=== PATIENT | male | born 2000 | race Hispanic/Latino ===

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

== ENCOUNTER 2019-06-22 22:52 | Emergency (ER) | payer BC, SELFPAY ==
--- OUTSIDE RECORDS SUMMARY | 2019-06-22 22:54 | XMS REPORT ---
:2000 [facility] Address [address] [place] [address] Dr. Newman [address] [place] [id number] Care Team Providers Name Role Phone Unavailable Unavailable Unavailable Problems This patient has no known problems. Allergies, Adverse Reactions, Alerts This patient has no known allergies or adverse reactions. Medications This patient has no known medications.
--- NOTE | 2019-06-23 01:44 | EDPHYS ---
Physician Documentation [facility] Name: Nathanael Vaughan Age: 18 yrs Sex: Male : 2000 Arrival Date: 06/22/2019 Time: 22:53 Bed 7 Private MD: ED Physician Jose Montalvo HPI: 06/23 01:36 This 18 yrs old Male presents to ER via Ambulatory with complaints of Foot tw4 Pain. 01:36 The patient presents with an injury, pain, that is acute. The complaints affect the tw4 right foot. Context: The problem was sustained at home. Onset: The symptoms/episode began/occurred today. Modifying factors: The symptoms are alleviated by nothing, the symptoms are aggravated by nothing. Severity of symptoms: At their worst the symptoms were moderate, in the emergency department the symptoms are unchanged. The patient has not experienced similar symptoms in the past. Historical: - Allergies: 06/22 23:26 No Known Allergies; ak1 - Home Meds: 23:26 None [Active]; ak1 - PMHx: 23:26 None; ak1 - PSHx: 23:26 None; ak1 - Immunization history:: Adult Immunizations up to date. - Social history:: Smoking status: Patient/guardian denies using tobacco. - Ebola Screening: : No symptoms or risks identified at this time. ROS: 06/23 01:36 Constitutional: Negative for fever, chills, and weight loss, Eyes: Negative for injury, tw4 pain, redness, and discharge, Cardiovascular: Negative for chest pain, palpitations, and edema, Respiratory: Negative for shortness of breath, cough, wheezing, and pleuritic chest pain, Abdomen/GI: Negative for abdominal pain, nausea, vomiting, diarrhea, and constipation, Back: Negative for injury and pain. MS/extremity: Positive for injury or acute deformity, pain, tenderness. Exam: 05:29 Constitutional: This is a well developed, well nourished patient who is awake, alert, tw4 and in no acute distress. Head/Face: Normocephalic, atraumatic. Chest/axilla: Normal chest wall appearance and motion. Nontender with no deformity. No lesions are appreciated. Cardiovascular: Regular rate and rhythm with a normal S1 and S2. No gallops, murmurs, or rubs. Normal PMI, no JVD. No pulse deficits. Respiratory: Lungs have equal breath sounds bilaterally, clear to auscultation and percussion. No rales, rhonchi or wheezes noted. No increased work of breathing, no retractions or nasal flaring. Abdomen/GI: Soft, non-tender, with normal bowel sounds. No distension or tympany. No guarding or rebound. No evidence of tenderness throughout. Neuro: Awake and alert, GCS 15, oriented to person, place, time, and situation. Cranial nerves II-XII grossly intact. Motor strength 5/5 in all extremities. Sensory grossly intact. Cerebellar exam normal. Normal gait. 05:29 Musculoskeletal/extremity: Extremities: all appear grossly normal, with no appreciated pain with palpation. Vital Signs: 06/22 23:24 BP 114 / 68; Pulse 89; Resp 16; Temp 99.2; Pulse Ox 99% on R/A; Weight 58.97 kg (R); ak1 Height 5 ft. 7 in. (170.18 cm) (R); Pain 7/10; 06/23 00:23 BP 116 / 68; Pulse 86; Resp 16; Pulse Ox 100% ; ao 06/22 23:24 Body Mass Index 20.36 (58.97 kg, 170.18 cm) ak1 MDM: 00:37 Patient medically screened. tw4 01:36 Differential diagnosis: fracture, foreign body. Data reviewed: vital signs, nurses tw4 notes. Counseling: I had a detailed discussion with the patient and/or guardian regarding: the historical points, exam findings, and any diagnostic results supporting the discharge/admit diagnosis. Special discussion: I discussed with the patient/guardian in detail that at this point there is no indication for admission to the hospital. It is understood, however, that if the symptoms persist or worsen the patient needs to return immediately for re-evaluation. 05:29 Data interpreted: Pulse oximetry: Interpretation: normal. tw4 06/23 00:11 Order name: Os Calcis (Calcaneus) Heel EDMS Administered Medications: 01:42 Drug: Motrin 800 mg Route: PO; ao 02:00 Follow up: Response: No adverse reaction ao Disposition: 06/23/19 01:43 Discharged to Home. Impression: Contusion of right foot. - Condition is Stable. - Discharge Instructions: Foot Contusion, Foot Contusion, [id number]. - Prescriptions for Ibuprofen 800 mg Oral Tablet - take 1 tablet by ORAL route every 8 hours As needed take with food; 30 tablet. - Medication Reconciliation Form, Thank You Letter, Antibiotic Education, Prescription Opioid Use form. - Follow up: Private Physician; When: Upon discharge from the Emergency Department; Reason: If symptoms return, Recheck today's complaints, Continuance of care. - Problem is new. - Symptoms have improved. Signatures: Dispatcher [employer] [facility] Alyssa Murdock RN RN ak1 Jin Asif RN RN ao Wadley, Terrence, MD MD tw4 Corrections: (The following items were deleted from the chart) 00:11 06/22 23:31 Foot Right 2 View+RAD.RAD.[email or web address] ordered. [facility] 06/23 02:00 01:43 06/23/2019 01:43 Discharged to Home. Impression: Contusion of right foot. ao Condition is Stable. Forms are Medication Reconciliation Form, Thank You Letter, Antibiotic Education, Prescription Opioid Use. Follow up: Private Physician; When: Upon discharge from the Emergency Department; Reason: If symptoms return, Recheck today's complaints, Continuance of care. Problem is new. Symptoms have improved. tw4 05:30 01:36 Constitutional: This is a well developed, well nourished patient who is awake, tw4 alert, and in no acute distress. Head/Face: Normocephalic, atraumatic. Cardiovascular: Regular rate and rhythm with a normal S1 and S2. No gallops, murmurs, or rubs. Normal PMI, no JVD. No pulse deficits. Respiratory: Lungs have equal breath sounds bilaterally, clear to auscultation and percussion. No rales, rhonchi or wheezes noted. No increased work of breathing, no retractions or nasal flaring. Abdomen/GI: Soft, non-tender, with normal bowel sounds. No distension or tympany. No guarding or rebound. No evidence of tenderness throughout. Back: No spinal tenderness. No costovertebral tenderness. Full range of motion. MS/ Extremity: Pulses equal, no cyanosis. Neurovascular intact. Full, normal range of motion. Neuro: Awake and alert, GCS 15, oriented to person, place, time, and situation. Cranial nerves II-XII grossly intact. Motor strength 5/5 in all extremities. Sensory grossly intact. Cerebellar exam normal. Normal gait. tw4
--- NOTE | 2019-06-23 01:44 | ER ---
Nurse's Notes [facility] Name: Nathanael Vaughan Age: 18 yrs Sex: Male : 2000 Arrival Date: 06/22/2019 Time: 22:53 Bed 7 Private MD: Diagnosis: Contusion of right foot Presentation: 06/22 23:25 Presenting complaint: Patient states: right heel pain since 1800 after kicking an ak1 object with his heel. Transition of care: patient was not received from another setting of care. Onset of symptoms was June 22, 2019. Risk Assessment: Do you want to hurt yourself or someone else? Patient reports no desire to harm self or others. Initial Sepsis Screen: Does the patient meet any 2 criteria? No. Patient's initial sepsis screen is negative. Does the patient have a suspected source of infection? No. Patient's initial sepsis screen is negative. Care prior to arrival: None. 23:25 Method Of Arrival: Ambulatory ak1 23:25 Acuity: NATA 4 ak1 Triage Assessment: 23:26 General: Appears in no apparent distress. Behavior is calm, cooperative. Pain: ak1 Complains of pain in lateral side of right heel and medial aspect of right heel. EENT: No signs and/or symptoms were reported regarding the EENT system. Neuro: No deficits noted. Cardiovascular: No deficits noted. Respiratory: No deficits noted. GI: No signs and/or symptoms were reported involving the gastrointestinal system. : No signs and/or symptoms were reported regarding the genitourinary system. Derm: No signs and/or symptoms reported regarding the dermatologic system. Musculoskeletal: No signs and/or symptoms reported regarding the musculoskeletal system. Historical: - Allergies: 23:26 No Known Allergies; ak1 - Home Meds: 23:26 None [Active]; ak1 - PMHx: 23:26 None; ak1 - PSHx: 23:26 None; ak1 - Immunization history:: Adult Immunizations up to date. - Social history:: Smoking status: Patient/guardian denies using tobacco. - Ebola Screening: : No symptoms or risks identified at this time. Screenin:42 Abuse screen: Denies threats or abuse. Denies injuries from another. Nutritional ao screening: No deficits noted. Tuberculosis screening: No symptoms or risk factors identified. Fall Risk None identified. Assessment: 23:37 General: Appears in no apparent distress. comfortable, Behavior is calm, cooperative, ao appropriate for age. Pain: Complains of pain in right foot Pain does not radiate. Pain currently is 7 out of 10 on a pain scale. Neuro: Level of Consciousness is awake, alert, obeys commands, Oriented to person, place, time, situation, Appropriate for age Moves all extremities. Full function Speech is normal, Facial symmetry appears normal, Pupils are PERRLA. Cardiovascular: Heart tones S1 S2 Capillary refill < 3 seconds Patient's skin is warm and dry. Respiratory: Airway is patent Respiratory effort is even, unlabored, Respiratory pattern is regular, symmetrical, Breath sounds are clear bilaterally. GI: Abdomen is flat, non-distended. : No signs and/or symptoms were reported regarding the genitourinary system. EENT: No signs and/or symptoms were reported regarding the EENT system. Derm: Skin is intact, Skin is pink, warm \T\ dry. normal, Skin temperature is warm. Musculoskeletal: Circulation, motion, and sensation intact. Range of motion: intact in all extremities, Reports pain in right foot Denies Trauma to left ankle. 06/23 00:22 Reassessment: Patient appears in no apparent distress at this time. Patient and/or ao family updated on plan of care and expected duration. Pain level reassessed. Patient is alert, oriented x 3, equal unlabored respirations, skin warm/dry/pink. 01:59 Reassessment: Patient appears in no apparent distress at this time. DC instructions ao given to patient. Patient agree with the POC and to follow up with PCP. No questions at this time. Vital Signs: 06/22 23:24 BP 114 / 68; Pulse 89; Resp 16; Temp 99.2; Pulse Ox 99% on R/A; Weight 58.97 kg (R); ak1 Height 5 ft. 7 in. (170.18 cm) (R); Pain 7/10; 06/23 00:23 BP 116 / 68; Pulse 86; Resp 16; Pulse Ox 100% ; ao 06/22 23:24 Body Mass Index 20.36 (58.97 kg, 170.18 cm) ak1 ED Course: 06/22 22:53 Patient arrived in ED. ds1 23:24 Arm band placed on Patient placed in waiting room, Patient notified of wait time. ak1 23:25 Triage completed. ak1 23:37 Jin Asif, RN is Primary Nurse. ao 23:42 Patient has correct armband on for positive identification. Pulse ox on. NIBP on. ao 06/23 00:29 X-ray completed. Patient tolerated procedure well. kw 00:36 Os Calcis (Calcaneus) Heel In Process Unspecified. EDMS 00:37 Jose Montalvo MD is Attending Physician. tw4 02:00 No provider procedures requiring assistance completed. Patient did not have IV access ao during this emergency room visit. Administered Medications: 01:42 Drug: Motrin 800 mg Route: PO; ao 02:00 Follow up: Response: No adverse reaction ao Outcome: :43 Discharge ordered by . tw4 02:00 Discharged to home ambulatory. ao 02:00 Condition: stable 02:00 Discharge instructions given to patient, Instructed on discharge instructions, follow up and referral plans. Demonstrated understanding of instructions, follow-up care, medications, Prescriptions given X 1. 02:00 Patient left the ED. ao Signatures: Dispatcher [employer] EDUT KimballIla frank ds1 Charlotte Castellon Amber RN RN ak1 Jin Asif, RN RN ao Jose Montalvo MD MD tw4
[2019-06-23] MEDS ORDERED: IBUPROFEN 400 MG TAB ONE (01:57)
--- NOTE | 2019-06-23 08:42 | RAD REPORT ---
EXAM DESCRIPTION: RAD - Os Calcis (Calcaneus) Heel - 06/23/2019 12:36 am CLINICAL HISTORY: Calcaneus pain following trauma COMPARISON: None. FINDINGS: No fracture or acute finding of the calcaneus. No plantar or Achilles spurring. There is a small benign sclerotic focus posterosuperior calcaneus. No bony coalition or subtalar abnormality se en. No suspicious findings in the soft tissues. IMPRESSION: Negative right calcaneus.
== END 2019-06-23 02:00 | disposition home or self-care (01) ==
LOC: ER 22:52
DX: S90.31XA Contusion of right foot, initial encounter (principal); Y92.009 Unspecified place in unspecified non-institutional (private) residence as the place of occurrence of the external cause
CPT/HCPCS: 73650; 99284

== ENCOUNTER 2022-02-27 18:38 | Emergency (ER) | payer BC, SELFPAY ==
--- OUTSIDE RECORDS SUMMARY | 2022-02-27 18:41 | XMS REPORT | Continuity of Care Document ---
:2000 Author Organization [facility] t Address [address] [place] [address] Care Team Providers Name Role Phone Pcp, Does Not Have A Primary Care Physician carlos albertoarp Attending Clinician Unavailable Berny Salgado Attending Clinician [phone] Darío Attending Clinician Unavailable Lab, Fam Pob I Attending Clinician Unavailable Berny Salgado Unavailable [phone] Benjamín Unavailable Unavailable Payers Payer Name Policy Type Policy Number Effective Date Expiration Date S ource Self Pay P [id number] 2021 00:00:00 Problems Condition Condition Condition Status Onset Resolution Last Treating Co mments Source Name Details Category Date Date Treatment Clinician Date Anxiety Condition Active 2021-03-20 Lily Salgado with 03-20 09:24:31 Mag Saldivar i depression 00:00: ty 00 Health High risk Condition Active 2021-03-20 Andrea Salgado sexual 03-20 09:24:31 Mag Arrieta Commun i behavior 00:00: ty 00 Health Folliculit Condition Active 2021-03-20 Andrea Salgado is 03-20 09:24:31 Mag Arrieta Commun i 00:00: ty 00 Health Std Condition Active 2021-03-20 Alton Salgado acy screening 03-20 09:24:31 Mag Arrieta Com sandor 00:00: ty 00 Health Preventati Condition Active 2021-03-20 Andrea Butts health 07-22 09:02:39 Larry Comm uni care 00:00: ty 00 Health Allergies, Adverse Reactions, Alerts This patient has no known allergies or adverse reactions. Social History Social Habit Start Date Stop Date Quantity Comments Source Exposure to Yes [facility] of SARS-CoV-2 (event) [facility] albumin, serum 2021-03-20 2021-03-20 5.0 g/dL [facility] 09:48:00 09:48:00 Health number of sexual 2021-03-20 2021-03-20 [facility] partners in last year 08:17:37 08:17:37 [facility] social history 2021-03-20 2021-03-20 reviewed today [facility] reviewed E&M 08:17:37 08:17:37 Health PHQ2 Questionairre 2021-03-20 2021-03-20 [facility] Score 08:17:37 08:17:37 Health drug use 2021-03-20 2021-03-20 Never [facility] ty 08:17:37 08:17:37 Health alcohol use 2021-03-20 2021-03-20 Never [facility] ity 08:17:37 08:17:37 Health condom use 2021-03-20 2021-03-20 Never [facility] ty 08:17:37 08:17:37 Health Ever had sexual 2021-03-20 2021-03-20 Yes [facility] intercourse? 08:17:37 08:17:37 Health is there any chance 2021-03-20 2021-03-20 No [facility] that you could be 08:17:37 08:17:37 Health ? passive cigarette 2021-03-20 2021-03-20 No [facility] smoke exposure 08:17:37 08:17:37 Health if the patient is 2021-03-20 2021-03-20 No [facility] using/has used a 08:17:37 08:17:37 Health vaping item, Current, Former, Never Used, Not asked sexual orientation 2021-03-20 2021-03-20 Srivastava [facility] 08:17:37 08:17:37 Health Number of Partners in 2019-07-22 2019-07-22 [facility] Last 60 Days 14:26:06 14:26:06 Health Gender of previous 2019-07-22 2019-07-22 Men [facility] sexual partner(s) 14:26:06 14:26:06 Health Gender of current 2019-07-22 2019-07-22 Men [facility] sexual partner(s) 14:26:06 14:26:06 Health intravenous drug use 2019-07-22 2019-07-22 No [facility] (IVDU) with needle 14:26:06 14:26:06 Health sharing, hx of Site - PrEP on Sexual 2019-07-22 2019-07-22 1198 - [facility] Risk Prophylaxis 14:26:06 14:26:06 Health [place] Number - 2019-07-22 2019-07-22 [facility] PrEP on Sexual Risk 14:26:06 14:26:06 Healt h Prophylaxis Funding Source - PrEP 2019-07-22 2019-07-22 [facility] on Sexual Risk 14:26:06 14:26:06 Health Prophylaxis high risk sexual 2019-07-22 2019-07-22 Yes [facility] behaviors 14:26:06 14:26:06 Health sex at 2019-07-22 2019-07-22 Male [facility] nity 14:26:06 14:26:06 Health Gender that patient 2019-07-22 2019-07-22 Men [facility] is attracted to 14:26:06 14:26:06 Health Sex Assigned At [birth year] Uni versity of 00:00:00 00:00:00 [facility] Smoking Status Start Date Stop Date Source Unknown if ever smoked [facility]finding[facility]ations Ordered Filled Start Stop Current Ordering Indication Dosage Frequency Signature Comments Components Source Medication Medication Date Date Medication? Clinician (SIG) Name Name GARRY Yes Mag Arrieta 1 1xD 1 tablet Le gacy (EMTRICITAB 4-20 Salgado daily Communi INE-TENOFOV 00:00: ty IR AF) 00 Health 200-25 MG TABS (MUPIROCIN) Yes Mag Arrieta apply 1 [facility] 2 % OINT 4-20 Salgado gram to Communi 00:00: affected ty 00 area twice Health a day. LEXAPRO Yes Mag Arrieta 1 1xD 1 tablet Lily lilly (ESCITALOPR 4-20 Salgado daily Communi AM OXALATE) 00:00: ty 10 MG TABS 00 Health No known 2017- No Univers medications 2-21 ity of 00:06: [place] [id number] [facility] Immunizations Ordered Filled Immunization Date Status Comments [facility] e Immunization Name Name SARS-COV-2 COVID-19 2021-02-17 Completed Unive rsity of PFIZER VACCINE 00:00:00 [facility] SARS-COV-2 COVID-19 2021-01-27 Completed Unive rsity of PFIZER VACCINE 00:00:00 [facility] Vital Signs Vital Name Observation Time Observation Value Comments Source weight in kilograms 2021-03-20 08:17:37 57.45 kg L [facility] E& Health respiratory rate E&M 2021-03-20 08:17:37 20 /min [facility] temperature site 2021-03-20 08:17:37 oral [facility] temperature E&M 2021-03-20 08:17:37 97.7 [degF] [facility] blood pressure, 2021-03-20 08:17:37 80 mm[Hg] [facility] diastolic [facility] blood pressure, 2021-03-20 08:17:37 123 mm[Hg] [facility] systolic [facility] oxygen saturation, 2021-03-20 08:17:37 97 /min [facility] oximetry [facility] pulse rate 2021-03-20 08:17:37 59 /min [facility] height in 2021-03-20 08:17:37 172.72 cm [facility] centimeters E&M [facility] weight E&M 2021-03-20 08:17:37 126.38 [lb_av] [facility] Procedures Procedure Date / Time Performing Clinician Source Performed Health 2021-03-31 13:42:04 Martinez Vera [facility] Education/Supportive Health Counseling Health 2021-03-20 09:48:34 Provider, [facility] Education/Supportive Health Services Health Counseling EKG - 12 Leads with 2021-03-20 09:04:03 Mag Salgado [facility] Interpretation and Report Health Venipuncture 2021-03-20 09:03:28 Mag Salgado [facility] 2019-07-22 14:29:45 Provider, Philly munoz Education/Supportive Health Services Health Counseling Encounters Start End Encounter Admission Attending Care Care Encounter Source Date/Time Date/Time Type Type Clinicians Facility Department ID 2022-02-17 Outpatient lc.[facility] [id number] [facility] 05:03:53 [facility] 2021-09-16 Outpatient lc.[facility] [id number] [facility] 12:35:29 [id number] [facility] 2021-09-16 Outpatient lc.[facility] [id number] [facility] 11:48:50 [id number] [facility] 2021-09-16 Outpatient lc.[facility] [id number] [facility] 11:20:40 [id number] [facility] 2021-09-16 Outpatient lc.[facility] [id number] [facility] 10:59:36 [id number] [facility] 2021-03-20 2021-03-20 Office Mag Salgado [facility] [id number] [facility] 00:00:00 00:00:00 Visit Margarita Chanel [id number] [facility] 2020-06-11 2020-06-11 Laboratory Lab, [facility] [id number] [facility] 14:00:00 14:20:00 Only Fam Pob I HEALTH [id number] ity of [place] [id number] Randall as PROFESSIO [phone] Tn dical NAL [address] OFFICE BUILDING ONE Results Test Description Test Time Test Comments Results Result Comments Source HIV rapid test results 2021-03-20 09:48:24 Test Item Value Reference Range Interpretation Comme nts HIV rapid test results (test code = 80256) negative Community HealthHIV-CMIA (Chemiluminescent Microparticle Immuno Assay) 2021-03-20 09:48:00 Test Item Value Reference Range Interpretation Comments HIV-CMIA (Chemiluminescent Non Reactive Non Reactive Microparticle Immuno Assay) (test code = 507779) [facility] Healthrapid plasma reagin antibody, [id number] 09:48:00 Test Item Value Reference Range Interpretation Comments rapid plasma reagin antibody, Non Reactive Non Reactive serum (test code = 5291-0) [facility] Healththyroid stimulating hormone, [id number] 09:48:00 Test Item Value Reference Range Interpretation Comments thyroid stimulating hormone, 1.800 u[IU]/mL 0.450-4.500 serum (test code = 3016-3) [facility] HealthNeisseria gonorrhoeae DNA [id number] 09:48:00 Test Item Value Reference Range Interpretation Comments Neisseria gonorrhoeae DNA probe Negative Negative (test code = 60223-3) [facility] Healthchlamydia DNA [id number] 09:48:00 Test Item Value Reference Range Interpretation Comments chlamydia DNA probe (test code = Negative Negative 65522-4) Community HealthLDL cholesterol, [id number] 09:48:00 Test Item Value Reference Range Interpretation Comments LDL cholesterol, serum (test code = 99 mg/dL 0-99 2088-1) Community Healthvery low density dllipfvazaby9889-90-13 09:48:00 Test Item Value Reference Range Interpretation Comments very low density lipoproteins (test 13 mg/dL 5-40 code = 2091-7) Community HealthHDL cholesterol, [id number] 09:48:00 Test Item Value Reference Range Interpretation Comments HDL cholesterol, serum (test code = 86 mg/dL >39 5-9) [facility] Healthtriglyceride, serum, [id number] 09:48:00 Test Item Value Reference Range Interpretation Comments triglyceride, serum, fasting (test 70 mg/dL 0-149 code = 2571-8) [facility] Healthcholesterol, [id number] 09:48:00 Test Item Value Reference Range Interpretation Comments cholesterol, serum (test code = 198 mg/dL 040-867 7370-3) Community Healthalanine aminotransferase (SGPT), [id number] 09:48:00 Test Item Value Reference Range Interpretation Comments alanine aminotransferase (SGPT), serum 16 1/L 0-44 (test code = 1742-6) Community Healthaspartate aminotransferase (SGOT), [id number] 09:48:00 Test Item Value Reference Range Interpretation Comments aspartate aminotransferase (SGOT), 15 1/L 0-40 serum (test code = 1920-8) [facility] Healthalkaline phosphatase, [id number] 09:48:00 Test Item Value Reference Range Interpretation Comments alkaline phosphatase, serum (test code 62 1/L 39-117 = 1783-0) [facility] Healthbilirubin, serum, [id number] 09:48:00 Test Item Value Reference Range Interpretation Comments bilirubin, serum, total (test code 0.5 mg/dL 0.0-1.2 = 1975-2) [facility] Healthalbumin/globulin ratio, [id number] 09:48:00 Test Item Value Reference Range Interpretation Comments albumin/globulin ratio, 2.3 (unknown unit) 1.2-2.2 H serum (test code = 1759-0) [facility] Healthglobulin, [id number] 09:48:00 Test Item Value Reference Range Interpretation Comments globulin, serum (test code 2.2 (unknown unit) 1.5-4.5 = 2336-6) [facility] Healthalbumin, [id number] 09:48:00 Test Item Value Reference Range Interpretation Comments albumin, serum (test code = 1751-7) 5.0 g/dL 4.1-5.2 [facility] Healthprotein, total, [id number] 09:48:00 Test Item Value Reference Range Interpretation Comments protein, total, serum (test code = 7.2 g/dL 6.0-8.5 2885-2) [facility] Healthcalcium, [id number] 09:48:00 Test Item Value Reference Range Interpretation Comments calcium, serum (test code = 2000-07) 9.9 mg/dL 8.7-10.2 Community Healthcarbon dioxide, venous [id number] 09:48:00 Test Item Value Reference Range Interpretation Comments carbon dioxide, venous blood (test 24 mmol/L code = 2026-1) [facility] Healthchloride, [id number] 09:48:00 Test Item Value Reference Range Interpretation Comments chloride, serum (test code = 102 mmol/L 96-106 2075-0) [facility] Healthpotassium, [id number] 09:48:00 Test Item Value Reference Range Interpretation Comments potassium, serum (test code = 4.0 mmol/L 3.5-5.2 2823-3) [facility] Healthsodium, [id number] 09:48:00 Test Item Value Reference Range Interpretation Comments sodium, serum (test code = 2951-2) 140 mmol/L 134-144 Community Healthurea nitrogen/creatinine ratio, [id number] 09:48:00 Test Item Value Reference Range Interpretation Comments urea nitrogen/creatinine 17 (unknown unit) 9-20 ratio, serum (test code = 3097-3) [facility] HealtheGFR if [id number] 09:48:00 Test Item Value Reference Range Interpretation Comments eGFR if 147 mL/min/{1.73 m2} >59 (test code = 41686-8) Community HealthEstimated Glomerular Filtration Rate (calc)2021-03-20 09:48:00 Test Item Value Reference Range Interpretation Comments Estimated Glomerular 127 mL/min/{1.73 m2} >59 Filtration Rate (calc) (test code = 41418-2) Community Healthcreatinine, [id number] 09:48:00 Test Item Value Reference Range Interpretation Comments creatinine, serum (test code = 0.81 mg/dL 0.76-1.27 2160-0) Community Healthurea nitrogen, [id number] 09:48:00 Test Item Value Reference Range Interpretation Comments urea nitrogen, blood (test code = 14 mg/dL 6-20 3094-0) Community Healthblood glucose, [id number] 09:48:00 Test Item Value Reference Range Interpretation Comments blood glucose, random (test code = 94 mg/dL 65-99 2339-0) Community Healthimmature granulocytes, percentage of total cells, blood 2021-03-20 09:48:00 Test Item Value Reference Range Interpretation Comments immature granulocytes, percentage of 0 % total cells, blood (test code = 74942-1) [facility] Healthbasophil count, anegcqkm7547-15-19 09:48:00 Test Item Value Reference Range Interpretation Comments basophil count, absolute (test 0.0 x10E3/uL 0.0-0.2 code = 05002-5) Community HealthEosinophil Absolute [id number] 09:48:00 Test Item Value Reference Range Interpretation Comments Eosinophil Absolute Count (test 0.1 X10E3/UL 0.0-0.4 code = 85640-6) [facility] Healthmonocyte count, blood, [id number] 09:48:00 Test Item Value Reference Range Interpretation Comments monocyte count, blood, automated 0.5 X10E3/UL 0.1-0.9 (test code = 742-7) [facility] Healthlymphocyte count, blood, [id number] 09:48:00 Test Item Value Reference Range Interpretation Comments lymphocyte count, blood, 2.7 X10E3/UL 0.7-3.1 automated (test code = 731-0) [facility] HealthAbsolute [id number] 09:48:00 Test Item Value Reference Range Interpretation Comments Absolute Neutrophils (test code 2.0 X10E3/UL 1.4-7.0 = 39339-2) [facility] Healthbasophils as percent of blood ejgskpeayc0947-57-58 09:48:00 Test Item Value Reference Range Interpretation Comments basophils as percent of blood 0 % leukocytes (test code = 707-0) [facility] Healtheosinophils as percent of blood jhmexmvfpc4805-84-48 09:48:00 Test Item Value Reference Range Interpretation Comments eosinophils as percent of blood 2 % leukocytes (test code = 713-8) [facility] Healthmonocytes as percent of blood sarzmzlrmu9713-37-52 09:48:00 Test Item Value Reference Range Interpretation Comments monocytes as percent of blood 9 % leukocytes (test code = 5905-5) [facility] Healthlymphocytes as percent of blood pmhcaimkkx8960-02-37 09:48:00 Test Item Value Reference Range Interpretation Comments lymphocytes as percent of blood 51 % leukocytes (test code = 736-9) [facility] Healthneutrophils as percent of blood muauubuyhi9560-98-43 09:48:00 Test Item Value Reference Range Interpretation Comments neutrophils as percent of blood 38 % leukocytes (test code = 770-8) [facility] Healthplatelet [id number] 09:48:00 Test Item Value Reference Range Interpretation Comments platelet count (test code = 185 X10E3/UL 150-450 777-3) Community Healthred blood cell distribution [id number] 09:48:00 Test Item Value Reference Range Interpretation Comments red blood cell distribution width 12.0 % 11.6-15.4 (test code = 788-0) [facility] [place] corpuscular hemoglobin concentration, [id number] 09:48:00 Test Item Value Reference Range Interpretation Comments mean corpuscular hemoglobin 33.1 G/DL 31.5-35.7 concentration, RBC (test code = 786-4) [facility] [place] corpuscular hemoglobin, [id number] 09:48:00 Test Item Value Reference Range Interpretation Comments mean corpuscular hemoglobin, RBC 29.8 pg 26.6-33.0 (test code = 785-6) [facility] [place] corpuscular volume, [id number] 09:48:00 Test Item Value Reference Range Interpretation Comments mean corpuscular volume, RBC (test code 90 fL 79-97 = 787-2) [facility] Healthhematocrit, [id number] 09:48:00 Test Item Value Reference Range Interpretation Comments hematocrit, blood (test code = 4544-3) 45.3 % 37.5-51.0 [facility] Healthhemoglobin, [id number] 09:48:00 Test Item Value Reference Range Interpretation Comments hemoglobin, blood (test code = 15.0 g/dL 13.0-17.7 718-7) [facility] Healtherythrocyte (RBC) [id number] 09:48:00 Test Item Value Reference Range Interpretation Comments erythrocyte (RBC) count (test 5.03 X10E6/UL 4.14-5.80 code = 789-8) [facility] Healthleukocyte count, [id number] 09:48:00 Test Item Value Reference Range Interpretation Comments leukocyte count, blood (test 5.3 X10E3/UL 3.4-10.8 code = 6690-2) [facility] Healthhepatitis C antibody, [id number] 09:48:00 Test Item Value Reference Range Interpretation Comments hepatitis C antibody, serum (test code <0.1 0.0-0.9 = 5199-5) Community Healthhepatitis B surface [id number] 09:48:00 Test Item Value Reference Range Interpretation Comments hepatitis B surface antibody (test Reactive code = 78) [facility], [id number] 09:48:00 Test Item Value Reference Range Interpretation Comments hepatitis B core antibody, total Negative Negative (test code = 77) [facility] surface [id number] 09:48:00 Test Item Value Reference Range Interpretation Comments hepatitis B surface antigen (test Negative Negative code = 79) [facility] rapid test [id number] 08:17:37 Test Item Value Reference Range Interpretation Comments HIV rapid test results (test code = negative 22806) [facility] test, date of [id number] 08:17:37 Test Item Value Reference Range Interpretation Comments HIV test, date of last (test code 12/01/2019 = 07730) Community HealthNeisseria gonorrhoeae DNA [id number] 15:01:00 Test Item Value Reference Range Interpretation Comments Neisseria gonorrhoeae DNA probe Negative Negative (test code = 66937-9) Community Healthchlamydia DNA [id number] 15:01:00 Test Item Value Reference Range Interpretation Comments chlamydia DNA probe (test code = Negative Negative 59391-8) Community Healthurea nitrogen, [id number] 14:56:00 Test Item Value Reference Range Interpretation Comments urea nitrogen, blood (test code = 16 mg/dL 6-20 3094-0) Community Healthblood glucose, [id number] 14:56:00 Test Item Value Reference Range Interpretation Comments blood glucose, random (test code = 83 mg/dL 65-99 2339-0) Community Healthimmature granulocytes, percentage of total cells, blood 2019-07-22 14:56:00 Test Item Value Reference Range Interpretation Comments immature granulocytes, percentage of 0 % total cells, blood (test code = 21607-1) [facility] Healthbasophil count, [id number] 14:56:00 Test Item Value Reference Range Interpretation Comments basophil count, absolute (test 0.0 x10E3/uL 0.0-0.2 code = 85114-6) [facility] HealthEosinophil Absolute [id number] 14:56:00 Test Item Value Reference Range Interpretation Comments Eosinophil Absolute Count (test 0.0 X10E3/UL 0.0-0.4 code = 33430-3) [facility] Healthmonocyte count, blood, [id number] 14:56:00 Test Item Value Reference Range Interpretation Comments monocyte count, blood, automated 0.4 X10E3/UL 0.1-0.9 (test code = 742-7) [facility] Healthlymphocyte count, blood, nkkslytmv2119-37-11 14:56:00 Test Item Value Reference Range Interpretation Comments lymphocyte count, blood, 1.7 X10E3/UL 0.7-3.1 automated (test code = 731-0) [facility] HealthAbsolute [id number] 14:56:00 Test Item Value Reference Range Interpretation Comments Absolute Neutrophils (test code 2.5 X10E3/UL 1.4-7.0 = 91131-3) [facility] Healthbasophils as percent of blood [id number] 14:56:00 Test Item Value Reference Range Interpretation Comments basophils as percent of blood 0 % leukocytes (test code = 707-0) [facility] Healtheosinophils as percent of blood pwzlyimaab7704-38-57 14:56:00 Test Item Value Reference Range Interpretation Comments eosinophils as percent of blood 0 % leukocytes (test code = 713-8) [facility] Healthmonocytes as percent of blood tdzjjakpvi8100-28-27 14:56:00 Test Item Value Reference Range Interpretation Comments monocytes as percent of blood 8 % leukocytes (test code = 5905-5) [facility] Healthlymphocytes as percent of blood jiqpbytgsz5095-14-99 14:56:00 Test Item Value Reference Range Interpretation Comments lymphocytes as percent of blood 37 % leukocytes (test code = 736-9) [facility] Healthneutrophils as percent of blood [id number] 14:56:00 Test Item Value Reference Range Interpretation Comments neutrophils as percent of blood 55 % leukocytes (test code = 770-8) [facility] Healthplatelet [id number] 14:56:00 Test Item Value Reference Range Interpretation Comments platelet count (test code = 183 X10E3/UL 150-450 777-3) Community Healthred blood cell distribution [id number] 14:56:00 Test Item Value Reference Range Interpretation Comments red blood cell distribution width 13.1 % 12.3-15.4 (test code = 788-0) [facility] [place] corpuscular hemoglobin concentration, [id number] 14:56:00 Test Item Value Reference Range Interpretation Comments mean corpuscular hemoglobin 34.5 G/DL 31.5-35.7 concentration, RBC (test code = 786-4) [facility] [place] corpuscular hemoglobin, [id number] 14:56:00 Test Item Value Reference Range Interpretation Comments mean corpuscular hemoglobin, RBC 30.3 pg 26.6-33.0 (test code = 785-6) [facility] [place] corpuscular volume, [id number] 14:56:00 Test Item Value Reference Range Interpretation Comments mean corpuscular volume, RBC (test code 88 fL 79-97 = 787-2) [facility] Healthhematocrit, [id number] 14:56:00 Test Item Value Reference Range Interpretation Comments hematocrit, blood (test code = 4544-3) 43.2 % 37.5-51.0 [facility] Healthhemoglobin, [id number] 14:56:00 Test Item Value Reference Range Interpretation Comments hemoglobin, blood (test code = 14.9 g/dL 13.0-17.7 718-7) Community Healtherythrocyte (RBC) [id number] 14:56:00 Test Item Value Reference Range Interpretation Comments erythrocyte (RBC) count (test 4.91 X10E6/UL 4.14-5.80 code = 789-8) [facility] Healthleukocyte count, [id number] 14:56:00 Test Item Value Reference Range Interpretation Comments leukocyte count, blood (test 4.6 X10E3/UL 3.4-10.8 code = 6690-2) Community Healthhepatitis C antibody, [id number] 14:56:00 Test Item Value Reference Range Interpretation Comments hepatitis C antibody, serum (test code <0.1 0.0-0.9 = 5199-5) Community Healthhepatitis B surface [id number] 14:56:00 Test Item Value Reference Range Interpretation Comments hepatitis B surface antibody (test Reactive code = 78) [facility]hepatitis B core antibody, [id number] 14:56:00 Test Item Value Reference Range Interpretation Comments hepatitis B core antibody, total Positive Negative A (test code = 77) [facility] surface [id number] 14:56:00 Test Item Value Reference Range Interpretation Comments hepatitis B surface antigen (test Negative Negative code = 79) [facility]hepatitis A antibody, [id number] 14:56:00 Test Item Value Reference Range Interpretation Comments hepatitis A antibody, total (test Positive Negative A code = 75) [facility] HealthHIV-CMIA (Chemiluminescent Microparticle Immuno Assay) 2019-07-22 14:56:00 Test Item Value Reference Range Interpretation Comments HIV-CMIA (Chemiluminescent Non Reactive Non Reactive Microparticle Immuno Assay) (test code = 470292) [facility]rapid plasma reagin antibody, [id number] 14:56:00 Test Item Value Reference Range Interpretation Comments rapid plasma reagin antibody, Non Reactive Non Reactive serum (test code = 5291-0) [facility] Healthalanine aminotransferase (SGPT), [id number] 14:56:00 Test Item Value Reference Range Interpretation Comments alanine aminotransferase (SGPT), serum 17 1/L 0-44 (test code = 1742-6) [facility] Healthaspartate aminotransferase (SGOT), [id number] 14:56:00 Test Item Value Reference Range Interpretation Comments aspartate aminotransferase (SGOT), 17 1/L 0-40 serum (test code = 1920-8) [facility] Healthalkaline phosphatase, [id number] 14:56:00 Test Item Value Reference Range Interpretation Comments alkaline phosphatase, serum (test code 87 1/L 39-117 = 1783-0) [facility]bilirubin, serum, [id number] 14:56:00 Test Item Value Reference Range Interpretation Comments bilirubin, serum, total (test code 0.3 mg/dL 0.0-1.2 = 1975-2) [facility]albumin/globulin ratio, [id number] 14:56:00 Test Item Value Reference Range Interpretation Comments albumin/globulin ratio, 2.3 (unknown unit) 1.2-2.2 H serum (test code = 1759-0) [facility] Healthglobulin, [id number] 14:56:00 Test Item Value Reference Range Interpretation Comments globulin, serum (test code 2.3 (unknown unit) 1.5-4.5 = 2336-6) [facility] Healthalbumin, [id number] 14:56:00 Test Item Value Reference Range Interpretation Comments albumin, serum (test code = 1751-7) 5.3 g/dL 3.5-5.5 [facility] Healthprotein, total, [id number] 14:56:00 Test Item Value Reference Range Interpretation Comments protein, total, serum (test code = 7.6 g/dL 6.0-8.5 2885-2) [facility]calcium, [id number] 14:56:00 Test Item Value Reference Range Interpretation Comments calcium, serum (test code = 10.1 mg/dL 8.7-10.2 1999-) [facility] Healthcarbon dioxide, venous [id number] 14:56:00 Test Item Value Reference Range Interpretation Comments carbon dioxide, venous blood (test 22 mmol/L - code = 2026-1) [facility] Healthchloride, [id number] 14:56:00 Test Item Value Reference Range Interpretation Comments chloride, serum (test code = 100 mmol/L 96-106 5-0) [facility]potassium, [id number] 14:56:00 Test Item Value Reference Range Interpretation Comments potassium, serum (test code = 4.3 mmol/L 3.5-5.2 2823-3) [facility] Healthsodium, [id number] 14:56:00 Test Item Value Reference Range Interpretation Comments sodium, serum (test code = 2951-2) 140 mmol/L 134-144 [facility] Healthurea nitrogen/creatinine ratio, [id number] 14:56:00 Test Item Value Reference Range Interpretation Comments urea nitrogen/creatinine 20 (unknown unit) 9-20 ratio, serum (test code = 3097-3) [facility]altheGFR if [id number] 14:56:00 Test Item Value Reference Range Interpretation Comments eGFR if 148 mL/min/{1.73 m2} >59 (test code = 61984-6) [facility] HealthEstimated Glomerular Filtration Rate (calc)2019-07-22 14:56:00 Test Item Value Reference Range Interpretation Comments Estimated Glomerular 128 mL/min/{1.73 m2} >59 Filtration Rate (calc) (test code = 33282-5) [facility] Healthcreatinine, [id number] 14:56:00 Test Item Value Reference Range Interpretation Comments creatinine, serum (test code = 0.82 mg/dL 0.76-1.27 2160-0) [facility] HealthHIV rapid test [id number] 14:26:06 Test Item Value Reference Range Interpretation Comments HIV rapid test results (test code = negative 32132) [facility]
--- NOTE | 2022-02-27 20:49 | ER ---
Nurse's Notes [facility] Name: Nathanael Vaughan Age: 21 yrs Sex: Male : 2000 Arrival Date: 02/27/2022 Time: 18:41 Bed 10 Private MD: Diagnosis: Diarrhea, unspecified Presentation: 02/27 18:47 Chief complaint: Patient states: N/V/D for 1 week. N/V has gotten better by not eating. ll1 Feels hot, but no fever. Coronavirus screen: Vaccine status: Patient reports receiving the 2nd dose of the covid vaccine. Client denies travel out of the [place] in the last 14 days. diarrhea, fatigue, nausea, vomiting. Client presents with at least one sign or symptom that may indicate coronavirus-19. Standard/surgical mask placed on the client. Ebola Screen: Patient denies travel to an Ebola-affected area in the 21 days before illness onset. Initial Sepsis Screen: Does the patient meet any 2 criteria? No. Patient's initial sepsis screen is negative. Does the patient have a suspected source of infection? Yes: Acute abdominal pain. Risk Assessment: Do you want to hurt yourself or someone else? Patient reports no desire to harm self or others. Onset of symptoms was February 20, 2022. 18:47 Method Of Arrival: Ambulatory ll1 18:47 Acuity: NATA 3 ll1 Historical: - Allergies: 18:49 No Known Allergies; ll1 - PMHx: 18:49 None; ll1 - PSHx: 18:49 None; ll1 - Immunization history:: Client reports receiving the 2nd dose of the Covid vaccine. - Social history:: Smoking status: Patient denies any tobacco usage or history of. Screenin:01 Abuse screen: Denies threats or abuse. Denies injuries from another. Nutritional ab2 screening: No deficits noted. Tuberculosis screening: No symptoms or risk factors identified. Fall Risk None identified. Assessment: 20:01 General: Appears in no apparent distress. comfortable, Behavior is calm, cooperative, ab2 appropriate for age. Pain: Denies pain. Neuro: Level of Consciousness is awake, alert, obeys commands, Oriented to person, place, time, situation, Appropriate for age Supervisor Treating And Pumping are equal bilaterally Moves all extremities. Gait is steady, Speech is normal, Facial symmetry appears normal. Cardiovascular: No deficits noted. Denies chest pain, shortness of breath. Respiratory: Airway is patent Respiratory effort is even, unlabored, Respiratory pattern is regular, symmetrical. GI: Reports diarrhea, nausea. : No deficits noted. No signs and/or symptoms were reported regarding the genitourinary system. EENT: No deficits noted. No signs and/or symptoms were reported regarding the EENT system. Derm: No deficits noted. No signs and/or symptoms reported regarding the dermatologic system. Skin is intact, Skin is pink, warm \T\ dry. Vital Signs: 18:47 BP 115 / 74; Pulse 89; Resp 17; Temp 98.1; Pulse Ox 98% ; Weight 56.7 kg; Height 5 ft. ll1 8 in. (172.72 cm); Pain 0/10; 20:00 BP 107 / 62; Pulse 85; Resp 17; Pulse Ox 98% on R/A; ab2 20:53 BP 113 / 67; Pulse 87; Resp 17; Pulse Ox 99% on R/A; ab2 18:47 Body Mass Index 19.01 (56.70 kg, 172.72 cm) ll1 ED Course: 18:41 Patient arrived in ED. ds1 18:49 Triage completed. ll1 18:49 Arm band placed on Patient placed in an exam room, on a stretcher. ll1 19:08 Alex Mathur is Primary Nurse. ab2 19:14 Sree Gomez PA is PHCP. jr8 19:14 Robert Ambrose DO is Attending Physician. jr8 20:01 Patient has correct armband on for positive identification. Bed in low position. Call ab2 light in reach. Side rails up X2. 20:01 No provider procedures requiring assistance completed. ab2 20:48 Abdirahman Randall MD is Referral Physician. jr8 20:53 Patient did not have IV access during this emergency room visit. ab2 Administered Medications: No medications were administered Outcome: 20:48 Discharge ordered by . jr8 20:53 Discharged to home ambulatory. ab2 20:53 Condition: good 20:53 Discharge instructions given to patient, Instructed on discharge instructions, follow up and referral plans. medication usage, Demonstrated understanding of instructions, follow-up care, medications, Prescriptions given X 2. 20:54 Patient left the ED. ab2 Signatures: Kimball, Ila ds1 Sree Gomez PA PA jr8 Swetha Brock, RN RN ll1 Alex Mathur ab2
--- NOTE | 2022-02-27 20:49 | EDPHYS ---
Physician Documentation [facility] Name: Nathanael Vaughan Age: 21 yrs Sex: Male : 2000 Arrival Date: 02/27/2022 Time: 18:41 Bed 10 Private MD: ED Physician Robert Ambrose HPI: 02/27 20:33 This 21 yrs old Male presents to ER via Ambulatory with complaints of Diarrhea.jr8 20:33 The patient presents to the emergency department with nausea, vomiting, diarrhea, that jr8 is continuous. Onset: The symptoms/episode began/occurred acutely, 4 day(s) ago. Possible causes: unknown. The symptoms are aggravated by nothing. The symptoms are alleviated by nothing. Associated signs and symptoms: The patient has no apparent associated signs or symptoms. Severity of symptoms: At their worst the symptoms were moderate in the emergency department the symptoms are unchanged. The patient has not experienced similar symptoms in the past. The patient has not recently seen a physician. Patient stated that he had nausea vomiting and diarrhea for the past 4 days. Nausea and vomiting has subsided but still continues to have moderate diarrhea. Denies fevers. Denies recent travel or sick contacts.. Historical: - Allergies: 18:49 No Known Allergies; ll1 - PMHx: 18:49 None; ll1 - PSHx: 18:49 None; ll1 - Immunization history:: Client reports receiving the 2nd dose of the Covid vaccine. - Social history:: Smoking status: Patient denies any tobacco usage or history of. ROS: 20:33 Eyes: Negative for injury, pain, redness, and discharge, ENT: Negative for injury, jr8 pain, and discharge, Neck: Negative for injury, pain, and swelling, Cardiovascular: Negative for chest pain, palpitations, and edema, Respiratory: Negative for shortness of breath, cough, wheezing, and pleuritic chest pain, Back: Negative for injury and pain, MS/Extremity: Negative for injury and deformity, Skin: Negative for injury, rash, and discoloration, Neuro: Negative for headache, weakness, numbness, tingling, and seizure. 20:33 Abdomen/GI: Positive for nausea, vomiting, and diarrhea, abdominal cramps. Exam: 20:33 Constitutional: This is a well developed, well nourished patient who is awake, alert, jr8 and in no acute distress. Cardiovascular: Regular rate and rhythm with a normal S1 and S2. No gallops, murmurs, or rubs. Normal PMI, no JVD. No pulse deficits. Respiratory: Lungs have equal breath sounds bilaterally, clear to auscultation and percussion. No rales, rhonchi or wheezes noted. No increased work of breathing, no retractions or nasal flaring. Back: No spinal tenderness. No costovertebral tenderness. Full range of motion. Skin: Warm, dry with normal turgor. Normal color with no rashes, no lesions, and no evidence of cellulitis. MS/ Extremity: Pulses equal, no cyanosis. Neurovascular intact. Full, normal range of motion. Neuro: Awake and alert, GCS 15, oriented to person, place, time, and situation. Cranial nerves II-XII grossly intact. Motor strength 5/5 in all extremities. Sensory grossly intact. 20:33 Abdomen/GI: Inspection: abdomen appears normal, Bowel sounds: active, all quadrants, Palpation: abdomen is soft and non-tender, in all quadrants, Indicators: McBurney's point is not tender, Faust's sign is negative, Rovsing's sign is negative, Liver: tenderness, is not appreciated. Vital Signs: 18:47 BP 115 / 74; Pulse 89; Resp 17; Temp 98.1; Pulse Ox 98% ; Weight 56.7 kg; Height 5 ft. ll1 8 in. (172.72 cm); Pain 0/10; 20:00 BP 107 / 62; Pulse 85; Resp 17; Pulse Ox 98% on R/A; ab2 20:53 BP 113 / 67; Pulse 87; Resp 17; Pulse Ox 99% on R/A; ab2 18:47 Body Mass Index 19.01 (56.70 kg, 172.72 cm) ll1 MDM: 19:15 Patient medically screened. jr8 20:33 Data reviewed: vital signs, nurses notes, lab test result(s). Data interpreted: Pulse jr8 oximetry: on room air is 98 %. Interpretation: normal. Counseling: I had a detailed discussion with the patient and/or guardian regarding: the historical points, exam findings, and any diagnostic results supporting the discharge/admit diagnosis, lab results, the need for outpatient follow up, a family practitioner, to return to the emergency department if symptoms worsen or persist or if there are any questions or concerns that arise at home. 20:47 ED course: Discussed with patient it will take a couple days for the stool cultures to jr8 come back. In the meantime we will start him on Imodium and dicyclomine. Needs to continue to orally hydrate. If worse or starts to run fever to come back for further evaluation. Patient good with this at this time.. 02/27 19:45 Order name: Fecal Leukocyte Stain jr8 02/27 19:45 Order name: Rotavirus Antigen jr8 02/27 19:45 Order name: Stool Culture jr8 02/27 19:45 Order name: CDIFF jr8 Administered Medications: No medications were administered Disposition: 02/28 18:14 Co-signature as Attending Physician, Robert UMANZOR was immediately available on-site ms3 in the Emergency Department for consultation in the care of the patient.. Disposition Summary: 02/27/22 20:48 Discharge Ordered Location: Home jr8 Problem: new jr8 Symptoms: have improved jr8 Condition: Stable jr8 Diagnosis - Diarrhea, unspecified jr8 Followup: jr8 - With: Abdirahman Randall MD - When: 5 - 6 days - Reason: Recheck today's complaints, Continuance of care, Re-evaluation by your physician Discharge Instructions: - Discharge Summary Sheet jr8 - Diarrhea, Adult jr8 Forms: - Medication Reconciliation Form jr8 - Thank You Letter jr8 - Antibiotic Education jr8 - Prescription Opioid Use jr8 Prescriptions: - Imodium A-D 2 mg Oral tablet - take 2 tablet by ORAL route as directed after 1st loose stool and 1 tablet (2 jr8 mg) after each next bowel movement; do not exceed 16 mg in 24hrs; 16 tablet; Refills: 0, Product Selection Permitted - dicyclomine 20 mg Oral Tablet - take 1 tablet by ORAL route 3 times per day As needed; 20 tablet; Refills: 0, jr8 Product Selection Permitted Signatures: Dispatcher [employer] Sree Stratton PA PA jr8 Swetha Brock RN RN ll1 Robert Ambrose DO DO ms3
[2022-02-27 21:23] VITALS: TEMP 98.1
[2022-02-27 21:25] VITALS: BP 113/67; O2SAT 99
[2022-03-04 12:45] LABS: C.diff Antigen/Toxin Ag neg : Tox neg (NEG : NEG)
== END 2022-02-27 20:54 | disposition home or self-care (01) ==
LOC: ER 18:38
DX: R19.7 Diarrhea, unspecified (principal); R11.2 Nausea with vomiting, unspecified
CPT/HCPCS: 87045; 87046; 87324; 87425; 87449; 89055; 99282

== ENCOUNTER 2022-05-29 00:04 | Observation (INO) | payer OTHER, SELFPAY ==
[2022-05-29] MEDS ORDERED: NA CHLORIDE 0.9% 1,000 ML ONE (01:16)
[2022-05-29] MEDS ORDERED: MAGNES/ALUMIN/SIMET 30ML UCUP ONE (01:16)
[2022-05-29] MEDS ORDERED: LIDOCAINE VISCOUS 2% SOLN 15 ML UDC ONE (01:17)
[2022-05-29] MEDS ORDERED: FAMOTIDINE 20 MG/2 ML VIAL IV ONE (01:17)
[2022-05-29 02:10] LABS: Absolute Lymphocytes (CBC) 1.4 K/uL (0.7-4.9); Lymphocytes % 14.9 % (15.3-44.8); MCV 88.8 fL (80-100); MPV 9.8 fL (7.6-11.3); RBC Red Blood Cell Count 4.61 M/uL (4.33-5.43)
[2022-05-29 02:21] LABS: Albumin 4.7 g/dL (3.4-5.0); Bilirubin Total 0.6 mg/dL (0.2-1.0); Potassium 3.5 mmol/L (3.5-5.1); Protein, Total 7.5 g/dL (6.4-8.2)
[2022-05-29 02:32] LABS: Urine Blood Negative (Negative); Urine Glucose Negative (Negative); Urine Protein Negative (Negative); Urine Specific Gravity >=1.030 (1.005-1.030)
--- NOTE | 2022-05-29 03:34 | EDPHYS ---
Physician Documentation [facility] Name: Nathanael Vaughan Age: 21 yrs Sex: Male : 2000 Arrival Date: 05/29/2022 Time: 00:08 Bed 14 Private MD: ED Physician Rocky Castorena HPI: 05/29 03:36 This 21 yrs old Male presents to ER via Ambulatory with complaints of kdr Abdominal Pain. 03:36 The patient presents with abdominal pain in the epigastric area, in the upper abdomen. kdr Onset: The symptoms/episode began/occurred acutely, this morning. The symptoms do not radiate. Associated signs and symptoms: none. Pertinent positives: nausea. The symptoms are described as achy, constant, sharp, steady. Modifying factors: The symptoms are alleviated by nothing, the symptoms are aggravated by breathing deeply, touching the area. Severity of pain: At its worst the pain was mild moderate just prior to arrival, in the emergency department the pain has resolved. The patient has not experienced similar symptoms in the past. The patient has not recently seen a physician. Patient states that he began to have sharp intense stomach pain yesterday morning. He tried several home remedies to resolve the discomfort but was not able to. He presented to the ED with abdominal pain some nausea but no vomiting and no other complaints. He has not had this pain before.. Historical: - Allergies: 00:37 No Known Allergies; kd3 - Home Meds: 00:37 None [Active]; kd3 - PMHx: 00:37 None; kd3 - PSHx: 00:37 None; kd3 - Immunization history:: Adult Immunizations up to date. - Social history:: Smoking status: unknown. ROS: 03:36 Constitutional: Negative for fever, chills, and weight loss, Eyes: Negative for injury, kdr pain, redness, and discharge, ENT: Negative for injury, pain, and discharge, Neck: Negative for injury, pain, and swelling, Cardiovascular: Negative for chest pain, palpitations, and edema, Respiratory: Negative for shortness of breath, cough, wheezing, and pleuritic chest pain, Back: Negative for injury and pain, : Negative for injury, bleeding, discharge, and swelling, MS/Extremity: Negative for injury and deformity, Skin: Negative for injury, rash, and discoloration, Neuro: Negative for headache, weakness, numbness, tingling, and seizure activity. Psych: Negative for depression, anxiety, suicide ideation, homicidal ideation, and hallucinations, Allergy/Immunology: Negative for hives, rash, and allergies, Endocrine: Negative for neck swelling, polydipsia, polyuria, polyphagia, and marked weight changes, Hematologic/Lymphatic: Negative for swollen nodes, abnormal bleeding, and unusual bruising. 03:36 Abdomen/GI: Positive for abdominal pain, nausea. Exam: 03:36 Constitutional: This is a well developed, well nourished patient who is awake, alert, kdr and in no acute distress. Head/Face: Normocephalic, atraumatic. Eyes: Pupils equal round and reactive to light, extra-ocular motions intact. Lids and lashes normal. Conjunctiva and sclera are non-icteric and not injected. Cornea within normal limits. Periorbital areas with no swelling, redness, or edema. Neck: Trachea midline, no thyromegaly or masses palpated, and no cervical lymphadenopathy. Supple, full range of motion without nuchal rigidity, or vertebral point tenderness. No Meningismus. Chest/axilla: Normal chest wall appearance and motion. Nontender with no deformity. No lesions are appreciated. Cardiovascular: Regular rate and rhythm with a normal S1 and S2. No gallops, murmurs, or rubs. Normal PMI, no JVD. No pulse deficits. Respiratory: Lungs have equal breath sounds bilaterally, clear to auscultation and percussion. No rales, rhonchi or wheezes noted. No increased work of breathing, no retractions or nasal flaring. Back: No spinal tenderness. No costovertebral tenderness. Full range of motion. Skin: Warm, dry with normal turgor. Normal color with no rashes, no lesions, and no evidence of cellulitis. MS/ Extremity: Pulses equal, no cyanosis. Neurovascular intact. Full, normal range of motion. Neuro: Awake and alert, GCS 15, oriented to person, place, time, and situation. Cranial nerves II-XII grossly intact. Motor strength 5/5 in all extremities. Sensory grossly intact. Cerebellar exam normal. Normal gait. Psych: Awake, alert, with orientation to person, place and time. Behavior, mood, and affect are within normal limits. 03:36 Abdomen/GI: Inspection: abdomen appears normal, Bowel sounds: active. 03:36 Abdomen/GI: Palpation: mild abdominal tenderness, in the right lower quadrant and left kdr lower quadrant. Vital Signs: 00:35 BP 132 / 77; Pulse 56; Resp 17; Temp 98.2(O); Pulse Ox 100% on R/A; Weight 56.7 kg; kd3 Height 5 ft. 8 in. (172.72 cm); Pain 8/10; 01:36 Pain 3/10; ke1 00:35 Body Mass Index 19.01 (56.70 kg, 172.72 cm) kd3 MDM: 03:33 [facility] medically screened. [facility] 03:36 Data reviewed: vital signs, nurses notes, lab test result(s), radiologic studies. [facility] 05/29 01:06 Order name: CBC with Diff [facility] 05/29 01:06 Order name: CMP [facility] 05/29 01:06 Order name: Lipase [facility] 05/29 02:32 Order name: Urine Dipstick-Ancillary [facility] 05/29 03:35 Order name: COVID-19 SARS RT PCR (Document "Date of Onset" if Symptomatic) 2 05/29 05:35 Order name: Basic Metabolic Panel [facility] 05/29 01:06 Order name: CT Abd/Pelvis - IV Contrast Only [facility] 05/29 05:35 Order name: Basic Metabolic Panel [facility] 05/29 05:35 Order name: CBC with Automated Diff [facility] 05/29 05:35 Order name: CBC with Automated Diff [facility] 05/29 05:35 Order name: Lipase [facility] 05/29 05:35 Order name: Lipase [facility] 05/29 05:35 Order name: Liver (Hepatic) Function [facility] 05/29 05:35 Order name: Liver (Hepatic) Function [facility] 05/29 01:06 Order name: IV Saline Lock; Complete Time: 01:32 [facility] 05/29 01:06 Order name: Labs collected and sent; Complete Time: 01:32 [facility] 05/29 01:06 Order name: Urine Dipstick-Ancillary (obtain specimen); Complete Time: 02:49 [facility] 05/29 05:35 Order name: NPO EDMS Administered Medications: 01:07 CANCELLED (Duplicate Order): GI Cocktail without - (Maalox Suspension 30 ml, ke1 Lidocaine Liquid 2 % 15 ml) PO once 01:19 Drug: GI Cocktail without - (Maalox Suspension 30 ml, Lidocaine Liquid 2 % 15 ke1 ml) Route: PO; 01:36 Follow up: Pain 310 Adult; Response: Marked relief of symptoms ke1 01:31 Drug: NS 0.9% 1000 ml Route: IV; Rate: 1 bolus; Site: right antecubital; ke1 02:15 Follow up: IV Status: Completed infusion ke1 01:31 Drug: Pepcid (famotidine) 20 mg Route: IVP; Site: right antecubital; ke1 02:00 Follow up: Response: No adverse reaction ke1 03:53 Drug: morphine 4 mg Route: IVP; Infused Over: 4 mins; Site: right antecubital; ke1 04:30 Follow up: Response: Marked relief of symptoms ke1 03:53 Drug: Zofran (Ondansetron) 4 mg Route: IVP; Site: right antecubital; ke1 04:30 Follow up: Response: Marked relief of symptoms ke1 04:04 Drug: Rocephin - (cefTRIAXone) 1 grams Route: IVPB; Infused Over: 30 mins; Site: right ke1 antecubital; 04:34 Follow up: Response: No adverse reaction; IV Status: Completed infusion ke1 04:05 Drug: Flagyl (metroNIDAZOLE) 500 mg Volume: 100 ml; Route: IVPB; Rate: 200 ml/hr; ke1 Infused Over: 30 mins; Site: right antecubital; 04:35 Follow up: Response: No adverse reaction; IV Status: Completed infusion ke1 Disposition Summary: 05/29/22 03:33 Hospitalization Ordered Hospitalization Status: Observation kdr Provider: Maninder Gresham Location: Telemetry/MedSurg (observation) kdr Condition: Fair kdr Problem: new kdr Symptoms: have improved kdr Bed/Room Type: Standard kdr Room Assignment: 207(05/29/22 06:09) cg Diagnosis - Abdominal pain, Generalized kdr - Upper abdominal pain, unspecified kdr - Acute appendicitis with localized peritonitis kdr Forms: - Medication Reconciliation Form kdr - SBAR form kdr Signatures: Dispatcher [employer] EDRocky Crenshaw MD MD kdr Garcia, Cindy, RN RN cg Doucette, Kyli, RN RN kd3 Ebrottie, Kouassi, RN RN ke1 Corrections: (The following items were deleted from the chart) 01:07 01:06 GI Cocktail without - (Maalox 30 ml, Lidocaine 2 % 15 ml) PO once ke1 ordered. ke1 06:09 03:33 kdr cg
--- NOTE | 2022-05-29 03:34 | ER ---
Nurse's Notes [facility] – [place], [place] Name: Nathanael Vaughan Age: 21 yrs Sex: Male : 2000 Arrival Date: 05/29/2022 Time: 00:08 Bed 14 Private MD: Diagnosis: Abdominal pain, Generalized;Upper abdominal pain, unspecified;Acute appendicitis with localized peritonitis Presentation: 05/29 00:35 Chief complaint: Patient states: i started having an intense stomach pain this morning kd3 and I tried to make myself throw up but it didn't get better. it feels like i have gas that just wont go away. Coronavirus screen: Vaccine status: Patient reports receiving the 2nd dose of the covid vaccine. Ebola Screen: No symptoms or risks identified at this time. Initial Sepsis Screen: Does the patient meet any 2 criteria? No. Patient's initial sepsis screen is negative. Does the patient have a suspected source of infection? No. Patient's initial sepsis screen is negative. Risk Assessment: Do you want to hurt yourself or someone else? Patient reports no desire to harm self or others. Onset of symptoms was May 29, 2022. 00:35 Method Of Arrival: Ambulatory kd3 00:35 Acuity: NATA 3 kd3 Triage Assessment: 00:37 General: Appears in no apparent distress. Behavior is calm, cooperative. Pain: kd3 Complains of pain in epigastric area. GI: Reports upper abdominal pain. Historical: - Allergies: 00:37 No Known Allergies; kd3 - Home Meds: 00:37 None [Active]; kd3 - PMHx: 00:37 None; kd3 - PSHx: 00:37 None; kd3 - Immunization history:: Adult Immunizations up to date. - Social history:: Smoking status: unknown. Screenin:38 Abuse screen: Denies threats or abuse. Denies injuries from another. Nutritional kd3 screening: No deficits noted. Tuberculosis screening: No symptoms or risk factors identified. Fall Risk None identified. Assessment: 01:05 GI: Bowel sounds present X 4 quads. ke1 01:05 GI: Abd is soft Abdomen is tender to palpation. ke1 02:50 Reassessment: Patient appears in no apparent distress at this time. Patient states ke1 symptoms have improved. 04:00 Reassessment: Patient appears in no apparent distress at this time. Patient is alert, ke1 oriented x 3, equal unlabored respirations, skin warm/dry/pink. Patient states feeling better. Patient states symptoms have improved. 05:35 Reassessment: Patient appears in no apparent distress at this time. No changes from ke1 previously documented assessment. Vital Signs: 00:35 BP 132 / 77; Pulse 56; Resp 17; Temp 98.2(O); Pulse Ox 100% on R/A; Weight 56.7 kg; kd3 Height 5 ft. 8 in. (172.72 cm); Pain 8/10; 01:36 Pain 3/10; ke1 00:35 Body Mass Index 19.01 (56.70 kg, 172.72 cm) kd3 ED Course: 00:08 Patient arrived in ED. bp1 00:37 Triage completed. kd3 00:37 Arm band placed on right wrist. kd3 00:38 Mariaelena Mckeon, SPENCER is Primary Nurse. ke1 00:38 Patient has correct armband on for positive identification. kd3 00:38 No provider procedures requiring assistance completed. kd3 00:40 Rocky Castorena MD is Attending Physician. kdr 01:31 Inserted saline lock: 20 gauge in right antecubital area, using aseptic technique. ke1 02:44 CT Abd/Pelvis - IV Contrast Only In Process Unspecified. EDMS 03:30 Surgeon paged at 03:[address] Gresham no answer I left a voicemail. mw2 03:32 Maninder Gresham MD is Hospitalizing Provider. kdr 04:04 COVID-19 SARS RT PCR (Document "Date of Onset" if Symptomatic) Sent. ke1 06:47 Patient admitted, IV remains in place. ke1 Administered Medications: 01:07 CANCELLED (Duplicate Order): GI Cocktail without - (Maalox Suspension 30 ml, ke1 Lidocaine Liquid 2 % 15 ml) PO once 01:19 Drug: GI Cocktail without - (Maalox Suspension 30 ml, Lidocaine Liquid 2 % 15 ke1 ml) Route: PO; 01:36 Follow up: Pain 3/10 Adult; Response: Marked relief of symptoms ke1 01:31 Drug: NS 0.9% 1000 ml Route: IV; Rate: 1 bolus; Site: right antecubital; ke1 02:15 Follow up: IV Status: Completed infusion ke1 01:31 Drug: Pepcid (famotidine) 20 mg Route: IVP; Site: right antecubital; ke1 02:00 Follow up: Response: No adverse reaction ke1 03:53 Drug: morphine 4 mg Route: IVP; Infused Over: 4 mins; Site: right antecubital; ke1 04:30 Follow up: Response: Marked relief of symptoms ke1 03:53 Drug: Zofran (Ondansetron) 4 mg Route: IVP; Site: right antecubital; ke1 04:30 Follow up: Response: Marked relief of symptoms ke1 04:04 Drug: Rocephin - (cefTRIAXone) 1 grams Route: IVPB; Infused Over: 30 mins; Site: right ke1 antecubital; 04:34 Follow up: Response: No adverse reaction; IV Status: Completed infusion ke1 04:05 Drug: Flagyl (metroNIDAZOLE) 500 mg Volume: 100 ml; Route: IVPB; Rate: 200 ml/hr; ke1 Infused Over: 30 mins; Site: right antecubital; 04:35 Follow up: Response: No adverse reaction; IV Status: Completed infusion ke1 Medication: 06:47 VIS not applicable for this client. ke1 Outcome: 03:33 Decision to Hospitalize by Provider. kdr 06:47 Admitted to Med/surg accompanied by nurse. ke1 06:47 Condition: stable 06:47 Instructed on the need for admit. 06:48 Patient left the ED. ke1 Signatures: Dispatcher [employer] EDMS Rocky Castorena MD MD [facility] Dandre Turk 2 Corazon Ni Kyli, RN RN kd3 Mariaelena Mckeon RN RN ke1 Corrections: (The following items were deleted from the chart) 01:39 01:35 GI: Bowel sounds present X 4 quads. ke1 ke1
[2022-05-29] MEDS ORDERED: CEFTRIAXONE 1000 MG/VIAL ONE (03:45)
[2022-05-29] MEDS ORDERED: NA CHLORIDE 0.9% 50 ML ONE (03:45)
[2022-05-29] MEDS ORDERED: METRONIDAZOLE 500mg IVPB 500 MG/100 ML BAG IV ONE (03:45)
[2022-05-29] MEDS ORDERED: ONDANSETRON 4 MG/2 ML VIAL ONE ×2 (03:46→12:30)
[2022-05-29] MEDS ORDERED: MORPHINE 4 MG/ML SYR ONE (03:46)
[2022-05-29] MEDS ORDERED: ONDANSETRON 4 MG/2 ML VIAL IV PRN (05:31)
[2022-05-29] MEDS ORDERED: MORPHINE 4 MG/ML SYR IV PRN (05:31)
[2022-05-29] MEDS ORDERED: ACETAMINOPHEN 500 MG TAB PO PRN (05:31)
[2022-05-29] MEDS ORDERED: NA CHLORIDE 0.9% 1,000 ML IV SCH (06:00)
[2022-05-29] MEDS ORDERED: CEFOXITIN 1 GM in NA CHLORIDE 0.9% 50 ML IVPB SCH (06:00)
[2022-05-29 06:26] VITALS: BMI 19.0
[2022-05-29] MEDS: CEFOXITIN 1 GM in NA CHLORIDE 0.9% 50 ML IVPB SCH ×3 (08:31→17:56)
[2022-05-29] MEDS ORDERED: Ringers Lactate 1,000 ML IV ONE (10:40)
[2022-05-29] MEDS ORDERED: ACETAMINOPHEN 500 MG TAB ONE (10:53)
[2022-05-29] MEDS ORDERED: CELECOXIB 100 MG CAPSULE ONE (10:53)
[2022-05-29] MEDS ORDERED: FENTANYL CITR 100 MCG/2 ML ONE (11:10)
[2022-05-29] MEDS ORDERED: propofoL 200 MG/20 ML VIAL IV ONE (11:10)
[2022-05-29] MEDS ORDERED: MIDAZOLAM HCL 2 MG/2 ML INJ ONE (11:10)
[2022-05-29] MEDS ORDERED: ROCURONIUM 50 MG/5 ML VIAL IV ONE (11:10)
[2022-05-29] MEDS ORDERED: LIDOCAINE 1% MPF 5 ML VIAL ONE (11:10)
--- NOTE | 2022-05-29 11:37 | RAD REPORT ---
EXAM DESCRIPTION: CT - Abdomen Pelvis W Contrast - 05/29/2022 6:33 am CLINICAL HISTORY: 21 years Male Abdominal pain, acute, nonlocalized TECHNIQUE: CT of the abdomen and pelvis using intravenous contrast. All CT scans at this facility us e dose modulation, iterative reconstruction, and/or weight based dosing when appropriate to reduce ra diation dose to as low as reasonably achievable. COMPARISON: None. FINDINGS: Lower chest: Lung bases are clear. Abdomen/Pelvis: Liver: No focal lesion. Gallbladder: No calcified stone. Pancreas: Within normal limits. Spleen: Within normal limits. Kidney: No stone or hydronephrosis. 5 mm cyst in the right kidney. Adrenal glands: Within normal limits. Vascular structures: Unremarkable. Bowel: No bowel distention. Appendix: Mild distention measuring 7 mm with 2 mm appendicolith at the base. Peritoneum: No free fluid or free air. Lymph Nodes: No lymphadenopathy. Reproductive: Unremarkable. Urinary bladder: Unremarkable. Osseous structures: Unremarkable. Soft tissues: Unremarkable. IMPRESSION: 1. Mild distention of the appendix measuring 7 mm with 2 mm appendicolith at the base hill spicious for acute appendicitis. 2. No discrete periappendiceal fluid collection to suggest abscess formation and there is no free air . Electronically signed by: Radames Oreilly MD 05/29/2022 3:27 AM CDT THIS REPORT CONTAINS FINDINGS THAT MAY BE CRITICAL TO PATIENT CARE: The findings were verbally discu ssed via telephone conference with Rocky Castorena MD on 05/29/2022 at 3:28 AM CDT. Electronically signed by: Radames Oreilly MD 05/29/2022 3:28 AM CDT Due to temporary technical issues with the PACS/Fluency reporting system, reports are being signed by the in house radiologist without review as a courtesy to ensure prompt reporting. The interpreting r adiologist is fully responsible for the content of the report.
--- NOTE | 2022-05-29 11:43 | P.HP ---
Date of Service: 05/29/22 PC: This 21-year-old male presented to the emergency room with severe abdominal pain for diagnosis and treatment. HPC: Patient began to experience periumbilical pain last night around 5:00. Pain gradually intensified throughout the evening and night. This morning pain became unbearable and he came to be evaluated. PSHx: Negative PMHx: Negative Social Hx: No known allergies Sys R: No cough, wheeze, shortness of breath. No chest pain or palpitations. Denies any urinary complaints O/E: Awake alert vital signs are stable HEENT: Within normal limits Chest: Air entry is equal bilaterally Abd: Tender with guarding in the right lower quadrant Marilla: Intact Data: CT scan supports clinical diagnosis of acute appendicitis. Appendix is mildly inflamed with possible appendicitis. Impression: Acute appendicitis Plan: I will taken the operating room for laparoscopic possible open appendectomy. The risks of this procedure have been discussed. The possibility of bleeding, infection, injury to bowel and surrounding structures was outlined. The possible need for an open and/or further surgeries and procedures was d iscussed. He understands and wants us to proceed.
[2022-05-29] MEDS: Ringers Lactate 1,000 ML IV ONE ×3 (12:03→12:27)
[2022-05-29] MEDS ORDERED: dexAMETHasone 10 MG/ML VIAL ONE (12:05)
[2022-05-29] MEDS ORDERED: KETOROLAC 30 MG/ML INJ ONE (12:05)
[2022-05-29] MEDS ORDERED: GLYCOPYRROLATE 0.2 MG/ML SYR ONE (12:06)
[2022-05-29] MEDS ORDERED: NEOSTIGMINE 1 MG/ML -10 ML VIAL ONE (12:30)
--- NOTE | 2022-05-29 12:35 | P.OP ---
Preoperative diagnosis: Acute abdomen Postoperative diagnosis: Acute appendicitis Primary procedure: Laparoscopic appendectomy Secondary procedure: Tap block Anesthesia: General Estimated blood loss: Minimal Specimen: 1 appendix Findings: Acute appendicitis Operative Technique: The patient brought the operating room and placed supine on the table. After induction of adequate general endotracheal anesthesia, the area of the abdomen was prepped with a DuraPrep solution, he was draped in usual aseptic manner. A subumbilical incision was made. This was brought down through the skin and subcutaneous tissue. The Visiport was now used to enter the peritoneal cavity and created pneumoperitoneum to approximately 12 mmHg. Under direct vision a 5 mm trocar was placed in the lower midline, and another on the right lateral side of the abdominal wall. The patient was then placed in reverse Trendelenburg. The table was turned towards the left. We could visualize the right lower quadrant. Stuck to the abdominal wall in the right lower quadrant was a markedly inflamed appendix. It had not ruptured. It was gently teased off the abdominal wall. We were now able to elevate it and demonstrate his junction with the cecum. A window was made at the base of the appendix. The linear stapler was now introduced into the peritoneal cavity placed across the appendix and fired. The mesentery then of the appendix was taken down with a vascular reload. The detached specimen was placed into an Endo Catch, and brought out through the umbilical trocar site. The abdomen was then inspected to ensure adequate hemostasis. No other intra-abdominal pathology was noted. The umbilical trocar site was approximated using the Endo Close and absorbable suture. We were also able to provide the patient with a tap block injecting approximately 6cc of Marcaine bilaterally. At the end of the procedure, the pneumoperitoneum was collapsed, the trochars removed, and the suture tied. Carlos were then applied to the skin. At the end of the procedure he was stable and sent to the recovery room. Needle sponge instrument count were correct. No drains were placed. Complications: None Transferred to: Recovery Room Condition: Good
[2022-05-29 13:17] VITALS: O2SAT 99
[2022-05-29] MEDS: HYDROCODONE/APAP 7.5/325 MG TAB PO PRN (18:47)
[2022-05-30] MEDS: CEFOXITIN 1 GM in NA CHLORIDE 0.9% 50 ML IVPB SCH ×3 (00:55→12:15)
[2022-05-30] MEDS: HYDROCODONE/APAP 7.5/325 MG TAB PO PRN ×2 (00:57→10:06)
[2022-05-30 06:12] LABS: Absolute Lymphocytes (CBC) 1.6 K/uL (0.7-4.9); Albumin 3.7 g/dL (3.4-5.0); Bilirubin Direct 0.2 mg/dL (0-0.2); Bilirubin Total 0.6 mg/dL (0.2-1.0); Hematocrit 38.2 % (39.6-49.0); MCV 89.9 fL (80-100); MPV 9.8 fL (7.6-11.3); Protein, Total 6.7 g/dL (6.4-8.2); RBC Red Blood Cell Count 4.24 M/uL (4.33-5.43)
[2022-05-30 12:54] VITALS: BP 104/51; TEMP 98.8
--- NOTE | 2022-05-30 13:52 | P.DS ---
Admission Date: 05/29/22 Discharge Date: 05/30/22 Disposition: ROUTINE DISCHARGE Discharge Condition: GOOD Reason for Admission: Acute postoperative abdominal pain Procedures: Laparoscopic Brief History of Present Illness: Patient presented to the emergency room with severe right lower quadrant abdominal pain Hospital Course: The patient was evaluated in the emergency room. He was found to have acute appendicitis. Later that day he was brought to the operating room for laparoscopic appendectomy. He was admitted for postoperative abdominal pain. Today he is up ambulating, tolerating a diet, and is anxious to go home. His pain is well controlled. Vital Signs/Physical Exam: Temp Pulse Resp BP Pulse Ox 98.8 F 81 16 104/51 L 81 L 05/30/22 12:00 05/30/22 12:00 05/30/22 12:00 05/30/22 12:00 05/30/22 12:00 Laboratory Data at Discharge: WBC 7.3 K/uL (4.3-10.9) D 05/30/22 05:40 Hgb 12.7 g/dL (13.6-17.9) L 05/30/22 05:40 Hct 38.2 % (39.6-49.0) L 05/30/22 05:40 Plt Count 147 K/uL (152-406) L 05/30/22 05:40 Sodium 138 mmol/L (136-145) 05/30/22 05:40 Potassium 4.0 mmol/L (3.5-5.1) 05/30/22 05:40 BUN 9 mg/dL (7-18) 05/30/22 05:40 Creatinine 0.72 mg/dL (0.55-1.3) 05/30/22 05:40 Glucose 105 mg/dL (74-106) 05/30/22 05:40 Total Bilirubin 0.6 mg/dL (0.2-1.0) 05/30/22 05:40 AST 6 U/L (15-37) L 05/30/22 05:40 ALT 22 U/L (12-78) 05/30/22 05:40 Alkaline Phosphatase 63 U/L (45-117) 05/30/22 05:40 Lipase 46 U/L (73-393) L 05/30/22 05:40 Home Medications: NK [No Home Meds] 05/29/22 Physician Discharge Instructions: DC IV, discharge home. Ambulated home. Continue incentive spirometry. You may shower. Change dressings as needed. Advil/Motrin for pain. Diet as tolerated. Any questions or problems, go to the emergency room, or contact me. Diet: Regular Activity: Ad dada Followup: Maninder Gresham MD [ACTIVE - CAN ADMIT] - (Call to schedule appointment.)
== END 2022-05-30 14:26 | disposition home or self-care (01) ==
LOC: ER 00:04 → ERHOLD 06:07 → 2ND 06:28
PROVIDERS: ADMIT Surgery; ATTEND Surgery
PROC: 0DTJ4ZZ Resection of Appendix, Percutaneous Endoscopic Approach (ICD-10-PCS; principal; 2022-05-29 10:30)
DX: K35.80 Unspecified acute appendicitis (principal); Z20.822 Contact with and (suspected) exposure to COVID-19
CPT/HCPCS: 96365; 96361; 85025 ×2; 80048; 36415 ×2; 80076; 88304; 81003; 83690 ×2; 80053; 74177; 96375; 99285; 44970; U0003; Q9967; J2704; J2710; J2250; J3010; J1100; G0378 ×4; J7120 ×2; J7030; J3490 ×2; J0694 ×5; J2405 ×2